=== PATIENT | male | born 1960 | race Caucasian/White ===

== ENCOUNTER 2023-03-26 01:35 | Inpatient (IN) | payer OTHER ==
[2023-03-26 02:19] LABS: BASOPHILS PERCENT AUTO 0.4 % (0.0-1.0); EOSINOPHILS PERCENT AUTO 2.3 % (1.0-3.0); HEMATOCRIT 39.9 % (40.0-54.0); HEMOGLOBIN 13.5 g/dL (14.0-18.0); LYMPHOCYTES PERCENT AUTO 27.4 % (20.5-50.1); MEAN CORPUSCULAR HEMOGLOBIN 30.1 pg (27.0-34.0); MEAN CORPUSCULAR HGB CONC 33.8 g/dL (33.0-35.0); MEAN CORPUSCULAR VOLUME 88.9 fL (80-100); MONOCYTES PERCENT AUTO 10.7 % (2-8); NEUTROPHILS PERCENT AUTO 59.2 % (42.2-75.2); PLATELET COUNT,PLT 209 10^3/uL (150-450); RED BLOOD CELL COUNT 4.49 10^6/uL (4.6-6.2); WHITE BLOOD CELL COUNT,WBC 8.2 10^3/uL (5.0-10.0)
[2023-03-26 02:33] LABS: LACTIC ACID 0.8 mmol/L (0.4-2.0)
[2023-03-26 02:38] LABS: B-TYPE NATRIURETIC PEPTIDE,BNP 515 pg/ml (0-100)
[2023-03-26 02:39] LABS: INR 1.1 (0.9-1.2); PTT,PARTIAL THROMBOPLSTIN TIME 26.3 SEC (22.0-34.0)
[2023-03-26 02:47] LABS: A/G RATIO 0.8; ALANINE AMINOTRANSFERASE,ALT 39 U/L (16-63); ALBUMIN 3.5 g/dL (3.4-5.0); ALKALINE PHOSPHATASE 90 U/L (46-116); ANION GAP 14.9 mEq/L (7-13); ASPARTATE AMNIOTRANSFERASE,AST 22 U/L (15-37); BILIRUBIN TOTAL 0.9 mg/dL (0.2-1.0); BLOOD UREA NITROGEN,BUN 23 mg/dL (7-18); BUN/CREATININE RATIO 18.7 (No establ ref range); C-REACTIVE PROTEIN 0.94 ng/dL (<=0.30); CALCIUM 9.2 mg/dL (8.5-10.1); CARBON DIOXIDE,CO2 24 mmol/L (21-32); CHLORIDE,CL 104 mmol/L (98-107); CREATININE 1.23 mg/dL (0.70-1.30); EST CRCL DRUG DOSING (CG) 71.47 mL/min; ESTIMATED GFR 66 mL/min (>=60); GLUCOSE RANDOM 179 mg/dL (70-99); POTASSIUM,K 3.9 mmol/L (3.5-5.1); PROTEIN TOTAL,TP 7.7 g/dL (6.4-8.2); SODIUM,NA 139 mmol/L (136-145)
[2023-03-26 02:48] LABS: ETHANOL BLOOD MEDICAL < 3 mg/dL (0)
[2023-03-26 03:03] LABS: CORONAVIRUS COVID-19 NAA NEGATIVE (NEGATIVE); INFLUENZA A NAA NEGATIVE (NEGATIVE); INFLUENZA B NAA NEGATIVE (NEGATIVE); RESPIRATORY SYNCYTIAL VIR NAA NEGATIVE (NEGATIVE)
[2023-03-26] MEDS ORDERED: Furosemide 20 MG/2 ML VIAL IVPUSH ONE (03:27)
[2023-03-26 04:10] LABS: APPEARANCE,URINE CLEAR (CLEAR); BILIRUBIN,URINE NEGATIVE (NEGATIVE); COLOR,URINE YELLOW (YELLOW); GLUCOSE,URINE NEGATIVE (NEGATIVE); KETONES,URINE NEGATIVE (NEGATIVE); LEUKOCYTE ESTERASE,URINE NEGATIVE (NEGATIVE); NITRITE,URINE NEGATIVE (NEGATIVE); OCCULT BLOOD,URINE TRACE-INTACT (NEGATIVE); PH,URINE 5.5 (5.0-9.0); PROTEIN,URINE NEGATIVE (NEGATIVE); UROBILINOGEN,URINE 0.2 mg/dL (0.2-1.0)
[2023-03-26 04:14] LABS: AMPHETAMINES,URINE NEGATIVE (NEGATIVE); BARBITURATES,URINE NEGATIVE (NEGATIVE); BENZODIAZEPINE,URINE NEGATIVE (NEGATIVE); MDMA (ECSTASY), URINE NEGATIVE (NEGATIVE); METHADONE,URINE NEGATIVE (NEGATIVE); METHAMPHETAMINES,URINE NEGATIVE (NEGATIVE); OPIATES,URINE NEGATIVE (NEGATIVE); OXYCODONE,URINE NEGATIVE (NEGATIVE); PHENCYCLIDINE,URINE NEGATIVE (NEGATIVE); TCA,URINE NEGATIVE (NEGATIVE)
[2023-03-26 04:18] LABS: AMORPHOUS SEDIMENT,URINE RARE /HPF (NOT SEEN); BACTERIA,URINE NOT SEEN /HPF (0-FEW/HPF); EPITHELIAL CELLS,URINE NOT SEEN /HPF (NOT SEEN); MUCUS,URINE RARE /LPF (NOT SEEN); RBC,URINE 0-5 /HPF (0-5); WBC,URINE 0-5 /HPF (0-5/HPF)
[2023-03-26] MEDS ORDERED: Magnesium Hydroxide 400 MG/5 ML Susp 30 ML Cup PO PRN (05:26)
[2023-03-26] MEDS ORDERED: Albuterol/Ipratropium 3.0-0.5 MG/3 ML Neb Soln NEB PRN (05:26)
[2023-03-26] MEDS ORDERED: Naloxone 2 MG/2 ML Syringe IVPUSH PRN (05:26)
[2023-03-26] MEDS ORDERED: Acetaminophen 325 MG Tab PO PRN (05:26)
[2023-03-26] MEDS ORDERED: Ondansetron 4 MG/2 ML SDV IVPUSH PRN (05:26)
[2023-03-26] MEDS ORDERED: Acetaminophen/HYDROcodone 325-5 MG Tab PO PRN (05:26)
[2023-03-26] MEDS ORDERED: Sodium Chloride 0.9% 10 ML Syringe FLUSH PRN (05:26)
[2023-03-26] MEDS ORDERED: Sennosides/Docusate Sodium 50-8.6 MG Tab PO PRN (05:26)
[2023-03-26] MEDS ORDERED: HYDROmorphone 0.5 MG/0.5 ML Syringe IVPUSH PRN (05:26)
[2023-03-26] MEDS ORDERED: Polyethylene Glycol 3350 Powder 17 GM Packet PO PRN (05:26)
[2023-03-26] MEDS ORDERED: hydrALAZINE 20 MG/ML SDV IVPUSH PRN (05:29)
[2023-03-26] MEDS ORDERED: Metoprolol Tartrate 5 MG/5 ML SDV IVPUSH PRN (05:29)
[2023-03-26] MEDS ORDERED: Diltiazem 125 MG in Sodium Chloride 0.9% 100 ML IV SCH (05:30)
[2023-03-26] MEDS ORDERED: LORazepam 2 MG/ML SDV IVPUSH ONE (05:31)
[2023-03-26] MEDS ORDERED: Flumazenil 0.1 MG/ML 5 ML MDV IVPUSH PRN (05:31)
[2023-03-26 06:24] LABS: HEMOGLOBIN A1C 6.8 % (<5.7)
[2023-03-26 06:39] LABS: T4 FREE 0.95 ng/dL (0.76-1.46); TSH ULTRASENSITIVE 2.18 uIU/mL (0.36-3.74)
[2023-03-26] MEDS ORDERED: Oxymetazoline 0.05% Nasal Spray 30 ML Bottle NAS PRN (06:57)
[2023-03-26] MEDS ORDERED: Metoprolol Tartrate 25 MG Tab PO SCH ×3 (07:00→21:00)
[2023-03-26] MEDS ORDERED: Diltiazem 25 MG/5 ML SDV IVPUSH ONE ×2 (07:27→15:54)
[2023-03-26] MEDS: metFORMIN 500 MG Tab PO SCH (08:38)
[2023-03-26] MEDS: Sodium Chloride 0.65% Nasal Spray 45 ML Bottle NAS SCH ×2 (08:39→21:27)
[2023-03-26] MEDS: Apixaban 5 MG Tab PO SCH ×2 (09:30→21:26)
[2023-03-26] MEDS: Sodium Chloride 0.9% 10 ML Syringe FLUSH SCH ×2 (09:49→21:27)
[2023-03-26] MEDS ORDERED: Indomethacin 25 MG Cap PO PRN (10:48)
[2023-03-26] MEDS: LORazepam 2 MG/ML SDV IVPUSH PRN ×2 (12:01→21:27)
[2023-03-26] MEDS: Acetaminophen/Butalbital/Caffeine 325-50-40 MG Tab PO PRN ×2 (15:56→21:38)
[2023-03-26] MEDS: guaiFENesin/Dextromethorphan 100-10 MG/5 ML Soln 5 ML Cup PO PRN ×2 (17:44→21:25)
[2023-03-26] MEDS ORDERED: Temazepam 15 MG Cap PO PRN (19:53)
[2023-03-26] MEDS ORDERED: Loratadine 10 MG Tab PO SCH (21:00)
[2023-03-26] MEDS ORDERED: Pantoprazole 40 MG Vial IVPUSH ONE (21:14)
[2023-03-26] MEDS: Allopurinol 300 MG Tab PO SCH (21:26)
[2023-03-26] MEDS ORDERED: Benzonatate 100 MG Cap PO ONE (21:32)
[2023-03-26] MEDS: Nitroglycerin 0.4 MG Tab.SL SL PRN ×2 (21:36→21:48)
[2023-03-26] MEDS: Benzocaine/Cetylpyridinium/Menthol Lozenge MUCMEM PRN (21:41)
[2023-03-27] MEDS: Acetaminophen/Butalbital/Caffeine 325-50-40 MG Tab PO PRN (05:30)
[2023-03-27] MEDS: guaiFENesin/Dextromethorphan 100-10 MG/5 ML Soln 5 ML Cup PO PRN (05:43)
[2023-03-27] MEDS: Benzocaine/Cetylpyridinium/Menthol Lozenge MUCMEM PRN (05:43)
[2023-03-27] MEDS ORDERED: Omeprazole 20 MG Cap.CR PO SCH (06:00)
[2023-03-27 06:04] LABS: BASOPHILS PERCENT AUTO 0.5 % (0.0-1.0); EOSINOPHILS PERCENT AUTO 2.2 % (1.0-3.0); HEMATOCRIT 40.6 % (40.0-54.0); HEMOGLOBIN 13.6 g/dL (14.0-18.0); LYMPHOCYTES PERCENT AUTO 27.2 % (20.5-50.1); MEAN CORPUSCULAR HEMOGLOBIN 29.9 pg (27.0-34.0); MEAN CORPUSCULAR HGB CONC 33.5 g/dL (33.0-35.0); MEAN CORPUSCULAR VOLUME 89.2 fL (80-100); MONOCYTES PERCENT AUTO 9.9 % (2-8); NEUTROPHILS PERCENT AUTO 60.2 % (42.2-75.2); PLATELET COUNT,PLT 230 10^3/uL (150-450); RED BLOOD CELL COUNT 4.55 10^6/uL (4.6-6.2); WHITE BLOOD CELL COUNT,WBC 9.9 10^3/uL (5.0-10.0)
[2023-03-27 06:26] LABS: ANION GAP 13.5 mEq/L (7-13); CALCIUM 9.2 mg/dL (8.5-10.1); CREATININE 1.2 mg/dL (0.70-1.30); EST CRCL DRUG DOSING (CG) 73.26 mL/min; MAGNESIUM 1.8 mg/dL (1.8-2.4); POTASSIUM,K 4.5 mmol/L (3.5-5.1)
[2023-03-27] MEDS ORDERED: Benzonatate 100 MG Cap PO PRN (07:00)
[2023-03-27] MEDS ORDERED: Azithromycin 500 MG in Sodium Chloride 0.9% 250 ML IV SCH (08:00)
[2023-03-27] MEDS: Sodium Chloride 0.65% Nasal Spray 45 ML Bottle NAS SCH (08:52)
[2023-03-27] MEDS: Allopurinol 300 MG Tab PO SCH (08:53)
[2023-03-27] MEDS: Apixaban 5 MG Tab PO SCH (08:54)
[2023-03-27] MEDS: metFORMIN 500 MG Tab PO SCH (08:55)
[2023-03-27] MEDS ORDERED: Metoprolol Tartrate 25 MG Tab PO SCH (09:00)
[2023-03-27] MEDS ORDERED: Lisinopril 20 MG Tab PO SCH (09:00)
[2023-03-27] MEDS ORDERED: Furosemide 40 MG Tab PO SCH (09:00)
[2023-03-27] MEDS: Sodium Chloride 0.9% 10 ML Syringe FLUSH SCH (09:44)
[2023-03-27] MEDS ORDERED: Diltiazem 240 MG Cap.ER PO SCH (09:45)
[2023-03-27] MEDS ORDERED: [UNRECOGNIZED DRUG - OTHER] PO ONE (16:18)
[2023-03-27] MEDS ORDERED: LORazepam 1 MG Tab PO ONE (16:19)
[2023-03-27] MEDS ORDERED: LORazepam 1 MG Tab ONE (16:29)
[2023-03-27] MEDS ORDERED: Apixaban 5 MG Tab ONE (16:29)
[2023-03-27] MEDS ORDERED: Metoprolol Tartrate 25 MG Tab ONE (16:35)
== END 2023-03-27 17:06 | disposition home or self-care (01) | DRG 291 ==
LOC: DL.ED 01:35 → UNDOADMIN 04:21 → DL.MS 04:21
PROVIDERS: ADMIT Internal Medicine; ATTEND Internal Medicine
DX: I11.0 Hypertensive heart disease with heart failure (principal); I50.41 Acute combined systolic (congestive) and diastolic (congestive) heart failure; E46 Unspecified protein-calorie malnutrition; J98.11 Atelectasis; I48.91 Unspecified atrial fibrillation; Z20.822 Contact with and (suspected) exposure to COVID-19; G47.33 Obstructive sleep apnea (adult) (pediatric); I42.9 Cardiomyopathy, unspecified; E66.9 Obesity, unspecified; K21.9 Gastro-esophageal reflux disease without esophagitis; M10.9 Gout, unspecified; J40 Bronchitis, not specified as acute or chronic; F41.0 Panic disorder [episodic paroxysmal anxiety]; E11.65 Type 2 diabetes mellitus with hyperglycemia; Z79.899 Other long term (current) drug therapy; Z68.38 Body mass index [BMI] 38.0-38.9, adult; Z79.84 Long term (current) use of oral hypoglycemic drugs
CPT/HCPCS: 0241U; 36415; 71045; 71046; 80048; 80053; 80305-QW; 80307; 81001; 83036; 83605; 83735; 83880; 84439; 84443; 84484; 85025; 85379; 85610; 85730; 86140; 93005; 93010; 93306; 94667; 96374; 99222; 99238; 99284; 99285-25; A9270-GY; C9113; J0456; J1940; J2060; J2405; J3490; J7050